=== PATIENT | male | born 1965 | race Caucasian/White ===

== ENCOUNTER → 2020-01-13 09:14 | Outpatient (CLI) | payer OTHER, SELFPAY ==
--- NOTE | 2020-01-13 | DI.US.S_ITS ---
PROCEDURE: US ABDOMEN LIMITED INDICATIONS: Right upper quadrant pain TECHNIQUE: Real-time scanning was performed of the abdominal and retroperitoneal organs, with image documentation. COMPARISON: None. FINDINGS: Liver: Liver is normal in size . Increased liver parenchymal echotexture is seen. No discrete hepatic lesion is identified. Gallbladder: There is no gallstone. No gallbladder wall thickening or pericholecystic fluid. No sonographic Kumar sign. Biliary ducts: Intrahepatic bile ducts are non-dilated. Extrahepatic bile duct caliber measures 2.4 mm. Normal is 6-7 mm or less in diameter, or 10 mm or less post-cholecystectomy. Pancreas: Visualized portions of the pancreas are sonographically normal. Spleen: Spleen is normal in size and homogeneous in echotexture. IMPRESSION: 1. Normal appearing gallbladder and gallbladder wall thickness. No sonographic evidence of acute cholecystitis. No biliary ductal dilatation. 2. Hepatic steatosis. Dictated by: Laron Ordoñez M.D. on 01/13/2020 at 12:15 Approved by: Laron Ordoñez M.D. on 01/13/2020 at 12:46
[2020-01-13 11:08] LABS: Add Manual Diff / Slide Review NO; Basophils Absolute Auto 0 /uL (0-100); Basophils Percent Auto 0.8 % (0-2); Eosinophils Absolute Auto 300 /uL (0-450); Hematocrit 46.1 % (41-53); Hemoglobin 15.6 g/dL (13.5-17.5); Lymphocytes Absolute Auto 1800 /uL (1100-4500); Lymphocytes Percent Auto 33.3 % (25-40); Mean Corpuscular HGB Conc 33.9 % (30-36); Mean Corpuscular Hemoglobin 33.1 PG (26-34); Mean Corpuscular Volume 97.5 fL (80-100); Monocytes Absolute Auto 500 /uL (0-900); Monocytes Percent Auto 9.3 % (3-14); Neutrophils Absolute Auto 2800 /uL (1500-7000); Neutrophils Percent Auto 51.6 % (50-75); Platelet Count 172 X10^3/uL (150-400); Red Blood Cell Count 4.72 X10^6/uL (4.5-5.9); Red Cell Distribution Width 12.6 % (11.6-14.8); White Blood Cell Count 5.4 X10^3/uL (4.5-11.0)
[2020-01-13 11:14] LABS: Hemoglobin A1C% w Est Avg Glu 5.5 % (4.0-6.0)
[2020-01-13 11:37] LABS: Alanine Aminotransferase 46 IU/L (<50); Albumin 4.9 g/dL (3.5-5.0); Albumin Globulin Ratio 1.2 (1.0-2.8); Alkaline Phosphatase 82 U/L (38-126); Amylase 58 U/L (30-110); Aspartate Aminotransferase 43 IU/L (17-59); BUN Creatinine Ratio 16.3 (6-22); Bilirubin Total 0.9 mg/dL (0.2-1.3); Blood Urea Nitrogen 14 mg/dL (9-20); Calcium 9.8 mg/dL (8.4-10.2); Carbon Dioxide 33 mmol/L (22-32); Chloride 102 mmol/L (98-107); Cholesterol 229 mg/dL (140-199); Estimated Glomerular Filt Rate > 60.0 mL/min (>60); Glucose 105 mg/dL (70-100); HDL Cholesterol 40 mg/dL (40-60); HEMOLYSIS < 15 (0-50); LDL Cholesterol Calculated 157 mg/dL (<100); Lipase 42 U/L (23-300); Potassium 4.3 mmol/L (3.4-5.1); Sodium 140 mmol/L (137-145); Total Protein 8.9 g/dL (6.3-8.2); Triglycerides 159 mg/dL (35-150)
== END ==
PROVIDERS: Family Provider Internal Medicine; PCP Family Medicine; Referring Provider Physician Assistant; Visit Provider Physician Assistant
DX: R10.11 Right upper quadrant pain (principal); E78.00 Pure hypercholesterolemia, unspecified; R73.9 Hyperglycemia, unspecified; K76.0 Fatty (change of) liver, not elsewhere classified
CPT/HCPCS: 36415; 76705; 80053; 80061; 82150; 83036; 83690; 85025

== ENCOUNTER 2020-01-25 10:28 | Emergency (ER) | payer OTHER, SELFPAY ==
[2020-01-25 10:35] VITALS: BP 176/93; PULSE 55; RESP 18; TEMP 36.2; O2SAT 99; BMI 30.2
[2020-01-25 11:06] LABS: INR 1.1 (0.9-1.3); Prothrombin Time 12.9 SECONDS (10.1-12.7)
[2020-01-25 11:09] LABS: PTT Partial Thromboplastin Tim 33 SECONDS (26.4-36.2)
[2020-01-25 11:10] LABS: Add Manual Diff / Slide Review NO; Basophils Absolute Auto 0 /uL (0-100); Basophils Percent Auto 0.7 % (0-2); Eosinophils Absolute Auto 300 /uL (0-450); Hematocrit 46.1 % (41-53); Hemoglobin 15.4 g/dL (13.5-17.5); Lymphocytes Absolute Auto 2200 /uL (1100-4500); Mean Corpuscular HGB Conc 33.5 % (30-36); Mean Corpuscular Hemoglobin 32.7 PG (26-34); Mean Corpuscular Volume 97.6 fL (80-100); Monocytes Absolute Auto 500 /uL (0-900); Monocytes Percent Auto 7.5 % (3-14); Neutrophils Absolute Auto 3300 /uL (1500-7000); Neutrophils Percent Auto 51.8 % (50-75); Platelet Count 180 X10^3/uL (150-400); Red Blood Cell Count 4.72 X10^6/uL (4.5-5.9); Red Cell Distribution Width 12.6 % (11.6-14.8); White Blood Cell Count 6.3 X10^3/uL (4.5-11.0)
[2020-01-25 11:14] LABS: Alanine Aminotransferase 45 IU/L (<50); Albumin 4.7 g/dL (3.5-5.0); Albumin Globulin Ratio 1.3 (1.0-2.8); Alkaline Phosphatase 74 U/L (38-126); Aspartate Aminotransferase 35 IU/L (17-59); Bilirubin Total 0.6 mg/dL (0.2-1.3); Blood Urea Nitrogen 13 mg/dL (9-20); Calcium 9.5 mg/dL (8.4-10.2); Carbon Dioxide 31 mmol/L (22-32); Chloride 102 mmol/L (98-107); Estimated Glomerular Filt Rate > 60.0 mL/min (>60); Globulin 3.5 g/dL (1.7-4.1); Glucose 138 mg/dL (70-100); HEMOLYSIS < 15 (0-50); Lipase 49 U/L (23-300); Potassium 4.9 mmol/L (3.4-5.1); Sodium 137 mmol/L (137-145); Total Protein 8.2 g/dL (6.3-8.2)
[2020-01-25 13:59] VITALS: O2SAT 100
[2020-01-25 14:00] VITALS: BP 156/102; O2SAT 100
[2020-01-25 14:26] VITALS: PULSE 55
--- NOTE | 2020-01-25 14:49 | DI.CT.S_ITS ---
PROCEDURE: CT ABDOMEN PELVIS W CON INDICATIONS: r flank epigastric pain TECHNIQUE: After the administration of intravenous contrast, 5 mm thick sections acquired from the diaphragm to the symphysis. 5 mm coronal and sagittal reformats were acquired. For radiation dose reduction, the following was used: automated exposure control, adjustment of mA and/or kV according to patient size. COMPARISON: [facility], , ABDOMEN LIMITED, 01/13/2020, 10:06. FINDINGS: Image quality: Excellent. ABDOMEN: Lung bases: Lung bases are clear. Heart size is normal. Small hiatal hernia. Solid organs: Mild hepatic steatosis. Liver is normal in size and enhancement. Gallbladder is normal. Biliary system is non dilated. Pancreas enhances normally. Spleen is normal in size and enhancement. No adrenal nodules. Kidneys demonstrate normal size and enhancement, without hydronephrosis. Peritoneum and bowel: Appendix is normal. Bowel loops demonstrate normal wall thickness and caliber. No free fluid or air. Nodes and vessels: No retroperitoneal or mesenteric adenopathy by size criteria. Aorta and inferior vena cava are normal in size. Miscellaneous: No ventral hernias. PELVIS: Genitourinary: Bladder wall thickness is normal. Miscellaneous: No inguinal hernias or adenopathy. Bones: No suspicious bony lesions. No vertebral body compression fractures. Mild degenerative disc disease and facet arthropathy in lumbar spine. IMPRESSION: 1. No acute abnormalities in abdomen or pelvis. A cause for right side abdominal pain is not identified. 2. Normal appendix. 3. No urinary stones or hydronephrosis. Dictated by: Bria Spaulding M.D. on 01/25/2020 at 15:06 Approved by: Bria Spaulding M.D. on 01/25/2020 at 15:13
[2020-01-25 16:42] VITALS: BP 143/87; PULSE 69; RESP 16; O2SAT 99
--- NOTE | 2020-01-25 17:08 | ED_ITS ---
HPI - Abdominal Pain <JOANA Vivar-BC - Last Filed: 01/25/20 18:37> General Chief Complaint: Abdominal Pain Stated Complaint: still have issue in right abd Time Seen by Provider: 01/25/20 14:27 Source: patient Mode of arrival: Ambulatory Limitations: no limitations History of Present Illness HPI narrative: The patient is a 54-year-old male nonsmoker with history of abdominal pain, hypertension who presents with a chief complaint continuing to have right-sided abdominal pain. He was seen and evaluated in this emergency department on the 2nd of this month. He states he had a negative ultrasound at that time and normal lab work. He states that since then, he has not followed up with primary care provider in person. They have arranged for him to have an upper and lower GI scope, and they have called him to schedule that but he has not returned our call. He denies any fevers nausea vomiting or diarrhea. He states the pain is in his right upper abdomen, goes back to his flank at times, any states that his skin is painful at times. He states that sometimes he can feel his food moving through his abdomen, which is painful. He states it is worse when he puts pressure on his flank around his abdomen. He denies any chest pain shortness of breath cough or congestion. Related Data Home Medications Medication Instructions Recorded Confirmed lisinopril 20 mg PO QDAY #0 03/23/16 metoprolol succinate [Toprol XL] 12.5 mg PO BID #0 03/23/16 Previous Rx's Medication Instructions Recorded atorvastatin [Lipitor] 10 mg PO HS #30 tab 03/24/16 pantoprazole 40 mg PO BID #30 tab 03/24/16 Allergies Allergy/AdvReac Type Severity Reaction Status Date / Time No Known Allergies Allergy Uncoded 05/22/17 12:55 Review of Systems <JOSE ANGEL Vivar - Last Filed: 01/25/20 18:37> Review of Systems Narrative: GENERAL: Denies chills, fatigue, malaise, fever, sweats. HEENT: Denies sinus pain, ear pain, sore throat, difficulty swallowing, dizziness. RESPIRATORY: Denies dyspnea, cough, wheezing, hemoptysis, sputum. CARDIOVASCULAR: Denies chest pain, palpitations, orthopnea, edema, GASTROINTESTINAL: See HPI : Denies dysuria, frequency, incontinence, hematuria, urinary retention. MUSCULOSKELETAL: denies weakness, joint pain, or bony pain SKIN: Denies rash, skin lesions, or other NEUROLOGIC: Denies weakness, headache, numbness, change in speech, confusion, seizures, incoordination. PSYCHIATRIC: No concerning psychosocial issues. 12 point review of systems is negative except for those stated above Patient History <Carolina JOANA Tai-BC - Last Filed: 01/25/20 18:37> Social History Smoking Status: Never smoker Smoking Status: Never smoker Substance Use Type: does not use Exam <Carolina TaiJOANA- - Last Filed: 01/25/20 18:37> Narrative Exam Narrative: GENERAL: This is a well-nourished, well-developed patient, in no acute distress HEAD: Atraumatic. Normocephalic. No temporal or scalp tenderness. EYES: Pupils equal round and reactive. Extraocular motions intact. No scleral icterus. No injection or drainage. ENT: Nose without bleeding, purulent drainage or septal hematoma. Wearing a mask Airway patent. NECK: Trachea midline. No JVD or lymphadenopathy. Supple, nontender, no meningeal signs. CARDIOVASCULAR: Regular rate and rhythm RESPIRATORY: Clear to auscultation. Breath sounds equal bilaterally. No wheezes, rales, or rhonchi. No cough. No increased respiratory effort. No accessory muscle use. GASTROINTESTINAL: Abdomen soft, active bowel sounds all 4 quadrants, , nondistended. No hepato-splenomegaly, or palpable masses. Diffuse pain to palpation. EXTREMITIES: No clubbing, cyanosis, or edema. No joint tenderness, effusion, or edema noted. BACK: Nontender without deformity or crepitance. Slight flank tenderness on right side Neuro: Stable gait, alert oriented x3, using all extremities equally SKIN: No rash or erythema on visible skin. No rash noted on right flank or right abdomen Initial Vital Signs Initial Vital Signs: Vital Signs Temperature 97.2 F L 01/25/20 10:35 Pulse Rate 55 L 01/25/20 10:35 Respiratory Rate 18 01/25/20 10:35 Blood Pressure 176/93 H 01/25/20 10:35 Pulse Oximetry 99 01/25/20 10:35 <Debbie Mulligan MD - Last Filed: 01/26/20 07:32> Initial Vital Signs Initial Vital Signs: Vital Signs Temperature 97.2 F L 01/25/20 10:35 Pulse Rate 55 L 01/25/20 10:35 Respiratory Rate 18 01/25/20 10:35 Blood Pressure 176/93 H 01/25/20 10:35 Pulse Oximetry 99 01/25/20 10:35 Scores <Carolina JOSE ANGEL Tai - Last Filed: 01/25/20 18:37> GCS Rosalino coma scale eye opening: Spontaneous Rosalino coma scale verbal response: Orientated Rosalino coma scale motor response: Obey commands Rosalino coma scale total score: 15 Course <JOSE ANGEL Vivar - Last Filed: 01/25/20 18:37> Orders Ordered: ED Orders 01/25/20 10:39 EKG-12 Lead Stat 01/25/20 10:52 Complete Blood Count AUTO DIFF Stat Comprehensive Metabolic Panel Stat Lipase Stat Partial Thromboplastin Time Stat Prothrombin Time INR Stat 01/25/20 14:49 CT abdomen pelvis w con Stat Vital Signs Vital signs: Vital Signs - 8 hr 01/25/20 13:59 01/25/20 14:00 01/25/20 14:26 Pulse Rate 55 L Respiratory Rate Blood Pressure 156/102 H Pulse Oximetry 100 100 01/25/20 16:42 Pulse Rate 69 Respiratory Rate 16 Blood Pressure 143/87 H Pulse Oximetry 99 <Debbie Mulligan MD - Last Filed: 01/26/20 07:32> Orders Ordered: ED Orders 01/25/20 10:39 EKG-12 Lead Stat 01/25/20 10:52 Complete Blood Count AUTO DIFF Stat Comprehensive Metabolic Panel Stat Lipase Stat Partial Thromboplastin Time Stat Prothrombin Time INR Stat 01/25/20 14:49 CT abdomen pelvis w con Stat Vital Signs Vital signs: Vital Signs - 8 hr 01/25/20 13:59 01/25/20 14:00 01/25/20 14:26 Pulse Rate 55 L Respiratory Rate Blood Pressure 156/102 H Pulse Oximetry 100 100 01/25/20 16:42 Pulse Rate 69 Respiratory Rate 16 Blood Pressure 143/87 H Pulse Oximetry 99 MDM - Abdominal Pain <Carolina JOSE ANGEL Tai - Last Filed: 01/25/20 18:37> Lab Data Result diagrams: 01/25/20 10:52 01/25/20 10:52 Labs: Lab Results 01/25/20 01/25/20 01/25/20 Range/Units 10:52 10:52 10:52 WBC 6.3 (4.5-11.0) X10^3/uL RBC 4.72 (4.5-5.9) X10^6/uL Hgb 15.4 (13.5-17.5) g/dL Hct 46.1 (41-53) % MCV 97.6 (80-100) fL MCH 32.7 (26-34) PG MCHC 33.5 (30-36) % RDW 12.6 (11.6-14.8) % Plt Count 180 (150-400) X10^3/uL Neut % (Auto) 51.8 (50-75) % Lymph % (Auto) 35.0 (25-40) % [place] % (Auto) 7.5 (3-14) % Eos % (Auto) 5.0 H (2-4) % Baso % (Auto) 0.7 (0-2) % Neut # (Auto) 3300 (8585-6573) /uL Lymph # (Auto) 2200 (7234-4796) /uL [place] # (Auto) 500 (0-900) /uL Eos # (Auto) 300 (0-450) /uL Baso # (Auto) 0 (0-100) /uL PT 12.9 H (10.1-12.7) SECONDS INR 1.1 (0.9-1.3) APTT 33 (26.4-36.2) SECONDS Sodium 137 (137-145) mmol/L Potassium 4.9 (3.4-5.1) mmol/L Chloride 102 (98-107) mmol/L Carbon Dioxide 31 (22-32) mmol/L BUN 13 (9-20) mg/dL Creatinine 0.81 (0.66-1.25) mg/dL Estimated GFR > 60.0 (>60) mL/min BUN/Creatinine Ratio 16.0 (6-22) Glucose 138 H (70-100) mg/dL Calcium 9.5 (8.4-10.2) mg/dL Total Bilirubin 0.6 (0.2-1.3) mg/dL AST 35 (17-59) IU/L ALT 45 (<50) IU/L Alkaline Phosphatase 74 (38-126) U/L Total Protein 8.2 (6.3-8.2) g/dL Albumin 4.7 (3.5-5.0) g/dL Globulin 3.5 (1.7-4.1) g/dL Albumin/Globulin Ratio 1.3 (1.0-2.8) Lipase 49 (23-300) U/L Point of care testing: Urine Dip Bedside Urine Glucose Negative Bedside Urine Bilirubin - Negative Bedside Urine Ketone - Negative Urine Specific [place] 1.020 Bedside Urine Occult Blood - Negative Bedside Urine pH 6.0 Bedside Urine Protein - Negative Bedside Urine Urobilinogen - Negative Bedside Urine Nitrite - Negative Bedside Urine Leukocytes - Negative Esterase ECG Data Attestation: I personally reviewed and interpreted this ECG as follows: Interpretation: Sinus bradycardia. Ventricular rate 50. P.r. interval 142. QRS 102. Viewed by Dr Mulligan MDM Narrative Medical decision making narrative: The patient is a 54-year-old male who presents with a chief complaint of persistent abdominal pain and painful food moving through my belly.He had a negative workup here about 2 weeks ago. Overall as lab work results well, no leukocytosis. However given his pain on exam, complains of flank pain, CT was obtained and had no acute findings. I encouraged him to follow up with primary care provider. He declines any medications for nausea pain etcetera. I encouraged him to schedule the scope such as primary care providers attempting to do. Encouraged follow-up with primary care provider in the next few days, may benefit from GI referral. Discussed at length coming back to the ER for abdominal pain with fever, inability keep down fluids etcetera. Patient has no questions or concerns upon discharge and states understanding return precautions as well as follow-up care. <Debbie Mulligan MD - Last Filed: 01/26/20 07:32> Lab Data Labs: Lab Results 01/25/20 01/25/20 01/25/20 Range/Units 10:52 10:52 10:52 WBC 6.3 (4.5-11.0) X10^3/uL RBC 4.72 (4.5-5.9) X10^6/uL Hgb 15.4 (13.5-17.5) g/dL Hct 46.1 (41-53) % MCV 97.6 (80-100) fL MCH 32.7 (26-34) PG MCHC 33.5 (30-36) % RDW 12.6 (11.6-14.8) % Plt Count 180 (150-400) X10^3/uL Neut % (Auto) 51.8 (50-75) % Lymph % (Auto) 35.0 (25-40) % [place] % (Auto) 7.5 (3-14) % Eos % (Auto) 5.0 H (2-4) % Baso % (Auto) 0.7 (0-2) % Neut # (Auto) 3300 (7721-7167) /uL Lymph # (Auto) 2200 (0186-4178) /uL [place] # (Auto) 500 (0-900) /uL Eos # (Auto) 300 (0-450) /uL Baso # (Auto) 0 (0-100) /uL PT 12.9 H (10.1-12.7) SECONDS INR 1.1 (0.9-1.3) APTT 33 (26.4-36.2) SECONDS Sodium 137 (137-145) mmol/L Potassium 4.9 (3.4-5.1) mmol/L Chloride 102 (98-107) mmol/L Carbon Dioxide 31 (22-32) mmol/L BUN 13 (9-20) mg/dL Creatinine 0.81 (0.66-1.25) mg/dL Estimated GFR > 60.0 (>60) mL/min BUN/Creatinine Ratio 16.0 (6-22) Glucose 138 H (70-100) mg/dL Calcium 9.5 (8.4-10.2) mg/dL Total Bilirubin 0.6 (0.2-1.3) mg/dL AST 35 (17-59) IU/L ALT 45 (<50) IU/L Alkaline Phosphatase 74 (38-126) U/L Total Protein 8.2 (6.3-8.2) g/dL Albumin 4.7 (3.5-5.0) g/dL Globulin 3.5 (1.7-4.1) g/dL Albumin/Globulin Ratio 1.3 (1.0-2.8) Lipase 49 (23-300) U/L Point of care testing: Urine Dip Bedside Urine Glucose Negative Bedside Urine Bilirubin - Negative Bedside Urine Ketone - Negative Urine Specific [place] 1.020 Bedside Urine Occult Blood - Negative Bedside Urine pH 6.0 Bedside Urine Protein - Negative Bedside Urine Urobilinogen - Negative Bedside Urine Nitrite - Negative Bedside Urine Leukocytes - Negative Esterase Discharge Plan Departure Patient Disposition: Home Clinical Impression: Abdominal pain Qualifiers: Abdominal location: generalized Qualified Code(s): R10.84 - Generalized abdominal pain Instructions: DI for Abdominal Pain-Adult Activity Restrictions/Additional Instructions: Thank you for trusting us with your care today As discussed, your lab work resulted well, and her CT scan came back well with no acute findings. Please follow-up with primary care provider in the next few days. As discussed, please come back to ER for acute concerns such as abdominal pain with fever, inability keep down fluids, concern of heart attack or stroke. Prescriptions: No Action lisinopril 20 mg tablet 20 mg PO QDAY Qty: 0 RF: 0 metoprolol succinate [Toprol XL] 100 mg tablet extended release 24 hr 12.5 mg PO BID Qty: 0 RF: 0 atorvastatin [Lipitor] 20 MG tablet 10 mg PO HS Qty: 30 RF: 0 pantoprazole 40 MG tablet,delayed release (DR/EC) 40 mg PO BID Qty: 30 RF: 0 Referrals: Agustin De MD [Primary Care Provider] - <Debbie Mulligan MD - Last Filed: 01/26/20 07:32> Cosign ED Attending Cosignature Attestation: I was immediately available in the department for consultation throughout this patient's visit. I agree with documentation as above. Debbie Mulligan MD
== END 2020-01-25 16:42 | disposition home or self-care (01) ==
PROVIDERS: Emergency Medicine; Emergency Provider Nurse Practitioner Family; Family Provider Internal Medicine; PCP Family Medicine
DX: R10.84 Generalized abdominal pain (principal); I10 Essential (primary) hypertension; R00.1 Bradycardia, unspecified
CPT/HCPCS: 36415; 74177; 80053; 81003; 83690; 85025; 85610; 85730; 93005; 93010; 99284; Q9967

== ENCOUNTER 2021-01-26 08:36 | Emergency (ER) | payer OTHER, SELFPAY ==
[2021-01-26] VITALS (15 sets, daily range): BP systolic 107–149; BP diastolic 64–89; PULSE 64–76; RESP 17–18; TEMP 36.7; O2SAT 95–100; BMI 32.1
--- NOTE | 2021-01-26 09:01 | ED.GENADULT ---
HPI - General Adult General Chief complaint: Abdominal Pain Stated complaint: RT side abd/rib pain Time Seen by Provider: 01/26/21 09:00 Source: patient Mode of arrival: Ambulatory History of Present Illness HPI narrative: 55-year-old gentleman with history of hypertension, hyperlipidemia and gastric erosions presents with right sided posterior lower lung/right upper flank pain getting worse over the last 24 hours. Worse when he takes a deep breath describes as a sharp stabbing pain he describes it is associated with chronic low-grade nausea but no overt vomiting, low-grade abdominal pain. He complains of recent abdominal distension and bloating without weight loss. Notes that his ?stomach issues? have been worse over the last few weeks despite his 40 mg twice a day of pantoprazole. He describes no black or bloody stools, no lower abdominal pain no left-sided chest pain, palpitations, dyspnea or exertional dyspnea. No headaches, skin changes or other neurologic findings Related Data Home Medications Medication Instructions Recorded Confirmed lisinopril 20 mg tablet 20 mg PO QDAY #0 03/23/16 Previous Rx's Medication Instructions Recorded atorvastatin 20 mg tablet (Lipitor) 10 mg PO HS #30 tab 03/24/16 pantoprazole 40 mg tablet,delayed 40 mg PO BID #30 tab 03/24/16 release metoprolol tartrate 25 mg tablet 12.5 mg PO BID #90 tab 01/09/21 Allergies Allergy/AdvReac Type Severity Reaction Status Date / Time No Known Allergies Allergy Uncoded 05/22/17 12:55 Review of Systems Review of Systems Narrative: Remainder of complete review of systems is otherwise unremarkable except for that included in the HPI. Patient History Medical History (Updated 01/26/21 @ 16:32 by Debbie Mulligan MD) Chronic gastric erosion Hyperlipidemia Hypertension Social History Smoking Status: Never smoker Smoking Status: Never smoker Substance Use Type: does not use Exam Narrative Exam Narrative: General: Healthy appearing, in no acute distress. Able to give a complete and coherent history. Well-nourished well-developed HEENT: Moist mucous membranes, normal sclera with reactive pupils, Neck: No JVD, supple Respiratory: Lungs are clear to auscultation, no wheezing no rales no rhonchi. Full and symmetrical air movement Cardiac: Regular rate and rhythm no murmurs no bruits Chest: No specific rib tenderness he area of tenderness involves the lower portion of the right lung over the liver extending down to the flank that is not made overtly worse with any palpation. There are no skin changes over this area Abdomen: Soft, nontender, good bowel tones, no flank pain Skin: Warm and dry, no rashes Neurologic: Grossly neurologically intact with no obvious asymmetries or abnormalities Extremities: No trauma, well perfused Psych: Cooperative, appropriate insight and affect Initial Vital Signs Initial Vital Signs: Vital Signs Pulse Rate 74 01/26/21 08:44 Pulse Oximetry 100 01/26/21 08:44 Course Orders Ordered: ED Orders 01/26/21 09:14 XR chest 1V Stat EKG-12 Lead Stat 01/26/21 09:17 Complete Blood Count AUTO DIFF Stat Comprehensive Metabolic Panel Stat Lipase Stat Magnesium Stat Troponin I Stat 01/26/21 11:32 US abdomen limited Stat 01/26/21 12:43 Urinalysis and Microscopic Stat 01/26/21 14:53 CT abdomen pelvis w con Stat Hydromorphone HCl (Hydromorphone 0.5 Mg Inj) 0.5 mg IV Q15MIN PRN PRN Reason: Pain, Last Admin: 01/26/21 09:38 Dose: 0.5 mg Documented by: BUDDY Discontinued Medications Sodium Chloride (Normal Saline 0.9%) 1,000 mls @ 1,000 mls/hr IV BOLUS ONE Stop: 01/26/21 10:12 Last Infusion: 01/26/21 11:06 Dose: 0 mls/hr Documented by: Admin: 01/26/21 09:38 Dose: 1,000 mls/hr Documented by: BUDDY Ketorolac Tromethamine (Ketorolac 30 Mg/Ml Vial) 15 mg IV NOW ONE Stop: 01/26/21 14:54 Last Admin: 01/26/21 15:47 Dose: 15 mg Documented by: BUDDY Ondansetron HCl (Ondansetron 4 Mg/2 Ml Inj) 4 mg IV NOW ONE Stop: 01/26/21 09:14 Last Admin: 01/26/21 09:38 Dose: 4 mg Documented by: BUDDY Vital Signs Vital signs: Vital Signs - 8 hr 01/26/21 08:44 01/26/21 08:45 01/26/21 08:46 Temperature Pulse Rate 74 75 73 Respiratory Rate Blood Pressure 148/86 H 149/89 H Pulse Oximetry 100 99 99 01/26/21 08:49 01/26/21 09:00 01/26/21 09:30 Temperature 98.1 F Pulse Rate 74 70 70 Respiratory Rate 18 Blood Pressure 148/86 H 119/76 121/76 Pulse Oximetry 99 97 97 01/26/21 10:00 01/26/21 10:30 01/26/21 11:00 Temperature Pulse Rate 65 64 67 Respiratory Rate Blood Pressure 114/69 112/68 107/64 Pulse Oximetry 95 97 97 01/26/21 11:07 01/26/21 11:30 01/26/21 12:00 Temperature Pulse Rate 69 66 65 Respiratory Rate Blood Pressure 114/66 112/66 114/74 Pulse Oximetry 97 97 99 01/26/21 12:30 01/26/21 12:31 Temperature Pulse Rate 69 68 Respiratory Rate Blood Pressure 138/74 Pulse Oximetry 98 99 Medical Decision Making Lab Data Result diagrams: 01/26/21 09:17 01/26/21 09:17 Labs: Lab Results 01/26/21 01/26/21 01/26/21 Range/Units 09:17 09:17 12:43 WBC 9.8 (4.5-11.0) X10^3/uL RBC 4.20 L (4.5-5.9) X10^6/uL Hgb 14.3 (13.5-17.5) g/dL Hct 39.9 L (41-53) % MCV 95.0 (80-100) fL MCH 34.0 (26-34) PG MCHC 35.8 (30-36) % RDW 12.7 (11.6-14.8) % Plt Count 148 L (150-400) X10^3/uL Neut % (Auto) 72.2 (50-75) % Lymph % (Auto) 14.6 L (25-40) % Warren % (Auto) 12.1 (3-14) % Eos % (Auto) 0.8 L (2-4) % Baso % (Auto) 0.3 (0-2) % Neut # (Auto) 7100 H (2375-6735) /uL Lymph # (Auto) 1400 (4623-2095) /uL Warren # (Auto) 1200 H (0-900) /uL Eos # (Auto) 100 (0-450) /uL Baso # (Auto) 0 (0-100) /uL Sodium 137 (137-145) mmol/L Potassium 4.0 (3.4-5.1) mmol/L Chloride 103 (98-107) mmol/L Carbon Dioxide 27 (22-32) mmol/L BUN 13 (9-20) mg/dL Creatinine 0.91 (0.66-1.25) mg/dL Estimated GFR > 60.0 (>60) mL/min BUN/Creatinine Ratio 14.3 (6-22) Glucose 114 H (70-100) mg/dL Calcium 9.3 (8.4-10.2) mg/dL Magnesium 2.1 (1.6-2.3) mg/dL Total Bilirubin 2.0 H (0.2-1.3) mg/dL AST 35 (17-59) IU/L ALT 49 (<50) IU/L Alkaline Phosphatase 76 (38-126) U/L Troponin I < 0.012 (0.01-0.034) ng/mL Total Protein 8.4 H (6.3-8.2) g/dL Albumin 4.7 (3.5-5.0) g/dL Globulin 3.7 (1.7-4.1) g/dL Albumin/Globulin Ratio 1.3 (1.0-2.8) Lipase 27 (23-300) U/L Urine Color Yellow Urine Appearance Clear Urine pH 5.5 (4.5-8.0) Ur Specific [place] 1.020 (1.000-1.035) Urine Protein Negative (Negative) Urine Glucose (UA) Negative (Negative) g/dL Urine Ketones Trace H (NEGATIVE) Urine Occult Blood 1+ H (Negative) Urine Nitrate Negative (Negative) Urine Bilirubin Negative (NEGATIVE) Urine Urobilinogen 2.0 H (0.2) E.U./dL Ur Leukocyte Esterase Negative (NEGATIVE) Urine RBC 0-1/hpf (0-5/HPF) Urine WBC 0-1/hpf (0-5/HPF) Ur Squamous Epith Cells 0-1 /hpf (0-5/HPF) Urine Bacteria None seen (None) Ur Culture Indicated? Cult not indicated Imaging Data Chest x-ray: Radiologist's Impression: FINDINGS:? ? Surgical changes and devices:? None.? ? Lungs and pleura:? Lungs are clear.? No pleural effusions or pneumothorax.? ? Mediastinum:? Mediastinal contours appear normal.? Heart size is normal.? ? Bones and chest wall:? No suspicious bony lesions.? Overlying soft tissues appear unremarkable.? ? IMPRESSION:? No acute cardiopulmonary pathology. ? ? Dictated by: Laron Ordoñez M.D. on 01/26/2021 at 9:44? ?? CT scan - abdomen/pelvis: Radiologist's Impression: FINDINGS:? Image quality:? Excellent.? ? Lung bases:? Trace right pleural effusion.? Right lung base atelectasis. ? Heart:? No significant findings. ? ? ABDOMEN: Liver:? Hepatic steatosis.? ? Gallbladder:? Unremarkable.? ? Biliary ducts:? Unremarkable.? ? Pancreas:? No peripancreatic fluid collection.? Pancreas enhances uniformly.? ? Spleen:? Unremarkable.? ? Adrenal Glands:? Unremarkable.? ? Kidneys and Ureters:? No hydronephrosis. ? Stomach and Bowel:? Stomach, small bowel loops, and colon are unremarkable.? Normal appendix. Peritoneum:? No abnormal intraperitoneal fluid.? No free air.? ? Ventral Wall: ? No hernia.? Abdominal Nodes:? No retroperitoneal or mesenteric adenopathy by size criteria.? Vessels:? Aorta and inferior vena cava are normal in size.? ? PELVIS: Pelvic Organs:? Unremarkable.? ? Bladder:? Unremarkable.? ? Pelvic Nodes: No enlarged lymph nodes.? Miscellaneous: No inguinal hernias are seen. ? ? ? Bones:? No compression fracture.? No suspicious lesions.? Small vertebral body osteophytes. ? ? IMPRESSION:? 1. Trace right pleural effusion.? Right basilar atelectasis. ? 2. Gallbladder appears unremarkable. ? 3. Normal appendix.? No hydronephrosis.? No free fluid. ? ? Dictated by: Jhonny Zhang M.D. on 01/26/2021 at 15:46? ?? ECG Data Interpretation: Normal sinus rhythm at a rate of 68 Incomplete right bundle-branch Normal axis No acute ischemic changes MDM Narrative Medical decision making narrative: 55-year-old gentleman with acute onset right sided abdominal pain unclear if it is right lower rib right upper quadrant right flank. Bilirubin is elevated without elevated LFTs, white count no blood in his urine to suggest kidney stone and chest x-ray is unremarkable. Will obtain US of his gallbladder. 250pm ultrasound is unremarkable. Findings reviewed with patient. At this point there is no evidence of infection, kidney stone, obvious pneumonia, pneumothorax, or need for hospitalization. Given the fact that he [place] on [address] [facility] and the pain is still severe will go ahead and do a CT scan of his abdomen today rather than observing for the next 24 hours. Will add Toradol for pain control and re-evaluate after the CT scan CT scan is equally unrevealing. No specific abnormalities identified to explain his pain. No pneumonia, pneumothorax, mass or abnormality in the right lung base, significantly new liver inflammation or tumors, no acute cholecystitis or cholelithiasis, it is no pancreatic masses or abnormalities no kidney stone no liver abnormalities and no renal abnormalities. At this point the most likely explanation is in fact musculoskeletal. Patient is quite frustrated that he will not be able to return to work after having things ?fixed? this afternoon. Offered brief course of narcotics which he politely declines. At this point he is safe for home discharge Discharge Plan Departure Patient Disposition: Home Clinical Impression: Rib pain on right side Instructions: DI for Musculoskeletal Pain Activity Restrictions/Additional Instructions: Thank you for coming in today It is frustrating when I can not figure out exactly what is causing your pain. Fortunately there is no evidence of of lung tumor, mass, infection or other abnormality. There are no specific liver abnormalities or gallbladder abnormalities. Your kidney looks normal with no sign of kidney stone. The remainder of your abdominal CT does not show any bowel abnormalities to explain this pain that your having. At this time I can confidently say that I am not finding anything that is life-threatening. Sometimes it takes a bit of time to figure out a final diagnosis and sometimes musculoskeletal pain really is this horrible and does improve with a bit more time. Using 400 mg of ibuprofen (2 [id number] pills) and 1 Tylenol every 6 hours can be very helpful in controlling pain. If your finding new symptoms or having other concerns, please feel free to return to the emergency department Prescriptions: No Action lisinopril 20 mg tablet 20 mg PO QDAY Qty: 0 0RF atorvastatin [Lipitor] 20 MG tablet 10 mg PO HS Qty: 30 0RF pantoprazole 40 MG tablet,delayed release (DR/EC) 40 mg PO BID Qty: 30 0RF metoprolol tartrate 25 mg tablet 12.5 mg PO BID Qty: 90 3RF Referrals: Agustin De MD [Primary Care Provider] -
--- NOTE | 2021-01-26 09:14 | DI.RAD.S_ITS ---
PROCEDURE: XR CHEST 1V INDICATIONS: right lower lobe/chest pain TECHNIQUE: One view of the chest was acquired. COMPARISON: [facility], , CHEST 1 VIEW, 03/23/2016, 10:58. FINDINGS: Surgical changes and devices: None. Lungs and pleura: Lungs are clear. No pleural effusions or pneumothorax. Mediastinum: Mediastinal contours appear normal. Heart size is normal. Bones and chest wall: No suspicious bony lesions. Overlying soft tissues appear unremarkable. IMPRESSION: No acute cardiopulmonary pathology. Dictated by: Laron Ordoñez M.D. on 01/26/2021 at 9:44 Approved by: Laron Ordoñez M.D. on 01/26/2021 at 9:44
[2021-01-26 09:36] LABS: Add Manual Diff / Slide Review NO; Basophils Absolute Auto 0 /uL (0-100); Basophils Percent Auto 0.3 % (0-2); Eosinophils Absolute Auto 100 /uL (0-450); Eosinophils Percent Auto 0.8 % (2-4); Hematocrit 39.9 % (41-53); Hemoglobin 14.3 g/dL (13.5-17.5); Lymphocytes Absolute Auto 1400 /uL (1100-4500); Lymphocytes Percent Auto 14.6 % (25-40); Mean Corpuscular HGB Conc 35.8 % (30-36); Monocytes Absolute Auto 1200 /uL (0-900); Monocytes Percent Auto 12.1 % (3-14); Neutrophils Absolute Auto 7100 /uL (1500-7000); Neutrophils Percent Auto 72.2 % (50-75); Platelet Count 148 X10^3/uL (150-400); Red Cell Distribution Width 12.7 % (11.6-14.8); White Blood Cell Count 9.8 X10^3/uL (4.5-11.0)
[2021-01-26] MEDS: ONDANSETRON 4 MG/2 ML INJ IV (09:38)
[2021-01-26] MEDS: SODIUM CHLORIDE 0.9% 1,000 ML 1000 ML IV (09:38)
[2021-01-26] MEDS: HYDROMORPHONE 0.5 MG INJ IV (09:38)
[2021-01-26 09:48] LABS: Alanine Aminotransferase 49 IU/L (<50); Albumin 4.7 g/dL (3.5-5.0); Albumin Globulin Ratio 1.3 (1.0-2.8); Alkaline Phosphatase 76 U/L (38-126); Aspartate Aminotransferase 35 IU/L (17-59); BUN Creatinine Ratio 14.3 (6-22); Blood Urea Nitrogen 13 mg/dL (9-20); Calcium 9.3 mg/dL (8.4-10.2); Carbon Dioxide 27 mmol/L (22-32); Chloride 103 mmol/L (98-107); Estimated Glomerular Filt Rate > 60.0 mL/min (>60); Globulin 3.7 g/dL (1.7-4.1); Glucose 114 mg/dL (70-100); HEMOLYSIS < 15 (0-50); Lipase 27 U/L (23-300); Magnesium 2.1 mg/dL (1.6-2.3); Sodium 137 mmol/L (137-145); Total Protein 8.4 g/dL (6.3-8.2)
[2021-01-26 10:00] LABS: Troponin I < 0.012 ng/mL (0.01-0.034)
--- NOTE | 2021-01-26 11:32 | DI.US.S_ITS ---
PROCEDURE: US ABDOMEN LIMITED INDICATIONS: RUQ PAIN; ELEVATED BILIRUBIN TECHNIQUE: Real-time focused scanning was performed of the abdomen, with image documentation. COMPARISON: [facility], CT, CT ABDOMEN PELVIS W CON, 01/25/2020, 14:37. [facility], US, US ABDOMEN LIMITED, 01/13/2020, 10:06. FINDINGS: Liver is mildly echogenic consistent with mild hepatic steatosis. No focal liver masses. No dilated ducts. Common bile duct measures 4.9 mm. No biliary ductal dilatation. Gallbladder is unremarkable. No stones or gallbladder wall thickening or pain on exam. Visualized portions of the pancreas are unremarkable. IMPRESSION: 1. Mild hepatic steatosis. 2. No evidence of biliary obstruction. 3. Unremarkable gallbladder. Dictated by: Rolando Curry M.D. on 01/26/2021 at 12:37 Approved by: Rolando Curry M.D. on 01/26/2021 at 12:38
[2021-01-26 13:21] LABS: Appearance Urine UA CLEAR; Bilirubin Urine UA NEGATIVE (NEGATIVE); Color Urine UA YELLOW; Glucose Urine UA NEGATIVE (Negative); Ketones Urine UA TRACE (NEGATIVE); Leukocyte Esterase Urine UA NEGATIVE (NEGATIVE); Nitrite Urine UA NEGATIVE (Negative); Occult Blood Urine UA 1+ (Negative); Protein Urine UA NEGATIVE (Negative); pH Urine UA 5.5 (4.5-8.0)
[2021-01-26 13:34] LABS: Bacteria Urine None Seen; Culture Indicated Urine Cult Not Indicated; RBC Urine 0-1/HPF (0-5/HPF); Squamous Epithelial Cell Urine 0-1 /HPF (0-5/HPF); WBC Urine 0-1/HPF (0-5/HPF)
--- NOTE | 2021-01-26 14:53 | DI.CT.S_ITS ---
PROCEDURE: CT ABDOMEN PELVIS W CON INDICATIONS: R upper quadrant/lower lung field pain TECHNIQUE: After the administration of IV contrast, axial sections were acquired from the lung bases to the pubic symphysis. Coronal and sagittal reformats were performed. For radiation dose reduction, the following was used: automated exposure control, adjustment of mA and/or kV according to patient size. COMPARISON: [facility], CT, CT ABDOMEN PELVIS W CON, 01/25/2020, 14:37. FINDINGS: Image quality: Excellent. Lung bases: Trace right pleural effusion. Right lung base atelectasis. Heart: No significant findings. ABDOMEN: Liver: Hepatic steatosis. Gallbladder: Unremarkable. Biliary ducts: Unremarkable. Pancreas: No peripancreatic fluid collection. Pancreas enhances uniformly. Spleen: Unremarkable. Adrenal Glands: Unremarkable. Kidneys and Ureters: No hydronephrosis. Stomach and Bowel: Stomach, small bowel loops, and colon are unremarkable. Normal appendix. Peritoneum: No abnormal intraperitoneal fluid. No free air. Ventral Wall: No hernia. Abdominal Nodes: No retroperitoneal or mesenteric adenopathy by size criteria. Vessels: Aorta and inferior vena cava are normal in size. PELVIS: Pelvic Organs: Unremarkable. Bladder: Unremarkable. Pelvic Nodes: No enlarged lymph nodes. Miscellaneous: No inguinal hernias are seen. Bones: No compression fracture. No suspicious lesions. Small vertebral body osteophytes. IMPRESSION: 1. Trace right pleural effusion. Right basilar atelectasis. 2. Gallbladder appears unremarkable. 3. Normal appendix. No hydronephrosis. No free fluid. Dictated by: Jhonny Zhang M.D. on 01/26/2021 at 15:46 Approved by: Jhonny Zhang M.D. on 01/26/2021 at 15:50
[2021-01-26] MEDS: KETOROLAC 30 MG/ML VIAL 15 MG IV (15:47)
== END 2021-01-26 16:54 | disposition home or self-care (01) ==
PROVIDERS: Emergency Provider Emergency Medicine; Family Provider Internal Medicine; PCP Family Medicine
DX: R07.81 Pleurodynia (principal)
CPT/HCPCS: 36415; 71045; 74177; 76705; 80053; 81001; 83690; 83735; 84484; 85025; 93005; 93010; 96361; 96374; 96375; 99284; J1170; J1885; J2405; Q9967

== ENCOUNTER → 2021-03-23 08:32 | Outpatient (CLI) | payer OTHER, SELFPAY ==
[2021-03-23 19:06] LABS: Alanine Aminotransferase 62 IU/L (<50); Albumin 4.4 g/dL (3.5-5.0); Albumin Globulin Ratio 1.3 (1.0-2.8); Alkaline Phosphatase 86 U/L (38-126); Aspartate Aminotransferase 51 IU/L (17-59); BUN Creatinine Ratio 16.7 (6-22); Blood Urea Nitrogen 16 mg/dL (9-20); Calcium 9.7 mg/dL (8.4-10.2); Carbon Dioxide 33 mmol/L (22-32); Chloride 101 mmol/L (98-107); Cholesterol 220 mg/dL (140-199); Estimated Glomerular Filt Rate > 60.0 mL/min (>60); Globulin 3.5 g/dL (1.7-4.1); Glucose 115 mg/dL (70-100); HDL Cholesterol 38 mg/dL (40-60); HEMOLYSIS < 15 (0-50); LDL Cholesterol Calculated 151 mg/dL (<100); Potassium 4.5 mmol/L (3.4-5.1); Sodium 137 mmol/L (137-145); Total Protein 7.9 g/dL (6.3-8.2); Triglycerides 157 mg/dL (35-150); Uric Acid 7.9 mg/dL (3.5-8.5)
[2021-03-23 19:09] LABS: Add Manual Diff / Slide Review NO; Basophils Absolute Auto 0 /uL (0-100); Basophils Percent Auto 0.7 % (0-2); Eosinophils Absolute Auto 400 /uL (0-450); Eosinophils Percent Auto 7.1 % (2-4); Hematocrit 43.2 % (41-53); Hemoglobin 14.8 g/dL (13.5-17.5); Lymphocytes Absolute Auto 1700 /uL (1100-4500); Lymphocytes Percent Auto 33.6 % (25-40); Mean Corpuscular HGB Conc 34.3 % (30-36); Mean Corpuscular Hemoglobin 32.7 PG (26-34); Mean Corpuscular Volume 95.4 fL (80-100); Monocytes Absolute Auto 500 /uL (0-900); Monocytes Percent Auto 9.2 % (3-14); Neutrophils Absolute Auto 2500 /uL (1500-7000); Neutrophils Percent Auto 49.4 % (50-75); Platelet Count 180 X10^3/uL (150-400); Red Blood Cell Count 4.52 X10^6/uL (4.5-5.9); Red Cell Distribution Width 12.9 % (11.6-14.8); White Blood Cell Count 5.1 X10^3/uL (4.5-11.0)
[2021-03-23 19:12] LABS: Rheumatoid Factor 19.9 IU/mL (<12.0)
[2021-03-23 19:31] LABS: Erythrocyte Sedimentation Rate 5 MM/HR (0-15)
[2021-03-28 17:43] LABS: ANA Screen, IFA Positive (.)
== END ==
PROVIDERS: Family Provider Internal Medicine; PCP Family Medicine; Visit Provider Physician Assistant
DX: E78.5 Hyperlipidemia, unspecified (principal); I10 Essential (primary) hypertension; K25.7 Chronic gastric ulcer without hemorrhage or perforation; M19.90 Unspecified osteoarthritis, unspecified site; M79.10 Myalgia, unspecified site
CPT/HCPCS: 80053; 80061; 84550; 85025; 85651; 86038; 86430

== ENCOUNTER 2022-03-22 08:54 | Emergency (ER) | payer OTHER, SELFPAY ==
[2022-03-22 09:03] VITALS: BP 176/113; PULSE 67; RESP 11; TEMP 36.2; O2SAT 99; BMI 32.3
--- NOTE | 2022-03-22 09:06 | DI.RAD.S_ITS ---
PROCEDURE: XR SHOULDER LT MIN 2V INDICATIONS: left shoulder pain / no overt trauma TECHNIQUE: 3 views of the shoulder were acquired. COMPARISON: None. FINDINGS: Bones: No fractures or dislocations. No suspicious bony lesions. Visualized ribs appear intact. Periarticular osteophyte formation at the acromioclavicular and glenohumeral joints. Soft tissues: Calcification projects over the rotator cuff. IMPRESSION: 1. Osteoarthritis. 2. Calcific tendinitis of the rotator cuff. Dictated by: Doug Pelayo M.D. on 03/22/2022 at 9:17 Approved by: Doug Pelayo M.D. on 03/22/2022 at 9:17
--- NOTE | 2022-03-22 09:27 | ED_ITS ---
HPI - Extremity Injury (Upper) General Chief Complaint: Extremity Injury, Upper Stated Complaint: tore LT shoulder up yesterday Time Seen by Provider: 03/22/22 09:10 Source: patient Mode of arrival: Ambulatory History of Present Illness HPI narrative: Patient brought here by spouse. Complains of left shoulder pain. Patient is right-handed. No prior history of injury or surgery to the left shoulder. Patient states 2 nights ago he was pulling up his bed sheets and felt pain in the left shoulder, there is a course of the last couple of days has worsened. Yesterday at work his pain got very severe. Patient lifts heavy machinery, he works for a [employer] company. Very painful with any movement of the left shoulder. No numbness tingling or weakness. No deformity. His shirt was removed Related Data Previous Rx's Medication Instructions Recorded pantoprazole 40 mg tablet,delayed 40 mg PO BID #30 tabs 03/24/16 release metoprolol tartrate 25 mg tablet 12.5 mg PO BID #90 tabs 01/09/21 lisinopril 20 mg tablet 20 mg PO QDAY #90 tabs 04/16/21 colchicine 0.6 mg capsule See Rx Instructions .Route 09/12/21 .COMPLEX #15 caps triamcinolone acetonide 0.1 % 1 applic topical .COMPLEX 14 days 02/14/22 topical ointment #30 grams atorvastatin 20 mg tablet See Rx Instructions .Route 02/27/22 .COMPLEX #90 tabs hydrocodone 5 mg-acetaminophen 325 1 tab PO Q6H PRN pain #15 tabs 03/22/22 mg tablet ondansetron 4 mg disintegrating 4 mg PO Q8H PRN nausea and 03/22/22 tablet vomiting #10 tabs Allergies Allergy/AdvReac Type Severity Reaction Status Date / Time No Known Drug Allergies Allergy Verified 02/14/22 09:21 Review of Systems Review of Systems Narrative: GENERAL: negative chills, fatigue, malaise, fever, sweats. HEENT: negative sinus pain, ear pain, sore throat RESPIRATORY: negative dyspnea, cough CARDIOVASCULAR: negative chest pain, palpitations GASTROINTESTINAL: negative nausea, vomiting, abdominal pain : negative dysuria, frequency, hematuria MUSCULOSKELETAL: Positive muscle or bony pain SKIN: negative rash, skin lesions NEUROLOGIC: negative weakness, numbness ROS Unobtainable: All systems reviewed & are unremarkable except as noted in HPI and below Patient History Medical History Chicken pox (~2001) Chronic gastric erosion Encounter for screening colonoscopy Gout Hyperlipidemia Hypertension Mumps (~1969) Surgical History Anesthesia History of shoulder surgery (~2009) Family History Father Hypertension Hyperlipidemia Mother Cancer Grandfather Stroke Social History Smoking Status: Former smoker Smoking Status: Former smoker alcohol intake frequency: 0-2 drinks per day Substance Use Type: does not use Exam Narrative Exam Narrative: GENERAL: in no distress, not toxic not dyspneic HEAD: Normocephalic. EYES: Pupils equal round ENT: Mucous membranes moist. NECK: Trachea midline. No midline cervical tenderness or step-off Tenderness to left trapezius muscle EXTREMITIES: No gross deformities. Examination left shoulder, no gross deformity or drop off. Light touch intact deltoid and fingertips with strong golf range attendant and radial pulse. Nontender wrist and elbow. Patient has pain with external and internal rotation of the shoulder. Also pain with forward flexion. Unable to bring his hand behind his back. Is able to bring hand above his head. BACK: No flank tenderness. NEURO: AOx4. SKIN: Warm and dry PSYCH: Not anxious, is cooperative Initial Vital Signs Initial Vital Signs: Vital Signs Temperature 97.1 F L 03/22/22 09:03 Pulse Rate 67 03/22/22 09:03 Respiratory Rate 11 L 03/22/22 09:03 Blood Pressure 176/113 H 03/22/22 09:03 Pulse Oximetry 99 03/22/22 09:03 Oxygen Delivery Method 03/22/22 09:03 Course Orders Ordered: Discontinued Medications Hydrocodone Bitart/Acetaminophen (Hydrocodone/Acet 5/325 Tablet) 2 tab PO NOW ONE Stop: 03/22/22 09:27 Last Admin: 03/22/22 09:30 Dose: 2 tab Documented By: ANA Ketorolac Tromethamine (Ketorolac 30 Mg/Ml Vial) 30 mg IM NOW ONE Stop: 03/22/22 09:38 Last Admin: 03/22/22 09:40 Dose: 30 mg Documented By: ANA Ondansetron HCl (Ondansetron 4 Mg Odt) 4 mg SL NOW ONE Stop: 03/22/22 09:27 Last Admin: 03/22/22 09:31 Dose: 4 mg Documented By: ANA Vital Signs Vital signs: Vital Signs - 8 hr 03/22/22 09:03 Temperature 97.1 F L Pulse Rate 67 Respiratory Rate 11 L Blood Pressure 176/113 H Pulse Oximetry 99 Oxygen Delivery Method Room Air MDM - Extremity Injury (Upper) Imaging Data Extremity x-ray #1: Radiologist's Impression: [address] [address] XRay Report Signed Patient: Clyde Arce MR#: [id number] : 1965 Acct:[id number] Age/Sex: 56 / M Date of Service: 03/22/22 Loc: ED Accession Number: [id number] ?? Procedure: XR shoulder LT min 2V Ordering Provider: Agustin Henderson MD PROCEDURE:? XR SHOULDER LT MIN 2V ? INDICATIONS:? left shoulder pain / no overt trauma ? TECHNIQUE:? 3 views of the shoulder were acquired.? ? COMPARISON:? None. ? FINDINGS:? ? Bones:? No fractures or dislocations.? No suspicious bony lesions.? Visualized ribs appear intact.? Periarticular osteophyte formation at the acromioclavicular and glenohumeral joints. ? Soft tissues:? Calcification projects over the rotator cuff. ? IMPRESSION:? 1. Osteoarthritis. 2. Calcific tendinitis of the rotator cuff. ? ? Dictated by: Doug Pelayo M.D. on 03/22/2022 at 9:17 ? ? Approved by: Doug Pelayo M.D. on 03/22/2022 at 9:17 ? [facility] Narrative Medical decision making narrative: Patient brought here by spouse. Complains of left shoulder pain. Patient is right-handed. No prior history of injury or surgery to the left shoulder. Patient states 2 nights ago he was pulling up his bed sheets and felt pain in the left shoulder, there is a course of the last couple of days has worsened. Yesterday at work his pain got very severe. Patient lifts heavy machinery, he works for a [employer] company. Very painful with any movement of the left shoulder. No numbness tingling or weakness. No deformity. His shirt was removed After history exam, x-ray shoulder ordered. Differential diagnosis includes but not limited to rotator cuff strain/sprain/tear/dislocation/arthritis/sprain/strain MDM CC: Left shoulder pain Complicating co-morbidities: None Data collected from: Patient and spouse Medical records reviewed: No previous visit for shoulder pain Exam documented above, pertinent findings include: Left shoulder pain with internal external rotation and forward flexion, unable to bring hand behind the back Imaging studies independently reviewed: Left shoulder x-ray positive for osteoarthritis and calcific tendinitis of the rotator cuff Treatments: [place]/sling/Toradol Re-evaluations: Reviewed x-rays with patient and spouse. Will need referral for Orthopedics and MRI. Discussion: Appropriate for discharge home. Will need follow up with Orthopedics and MRI. Pain medication started here and prescription for [place] as well. Work note provided per patient as well. Return precautions reviewed with patient and spouse. Spouse it is driving. Not toxic at discharge. They desire discharge home Diagnosis: Left shoulder strain Discharge Plan Departure Patient Disposition: Home Clinical Impression: Rotator cuff strain Instructions: DI for Shoulder Sprain, DI for Shoulder Pain Activity Restrictions/Additional Instructions: No driving or operating machinery today or when taking prescribed pain medication, may supplement with [id number] ibuprofen for pain. Use sling for comfort. Work note provided to be off today and tomorrow. Please call provided orthopedic office today for appointment and to schedule MRI of your shoulder. Return if worse or for any questions or concerns Prescriptions: New hydrocodone-acetaminophen 5-325 mg tablet 1 tab PO Q6H PRN (Reason: pain) Qty: 15 0RF ondansetron 4 mg tablet,disintegrating 4 mg PO Q8H PRN (Reason: nausea and vomiting) Qty: 10 0RF No Action pantoprazole 40 MG tablet,delayed release (DR/EC) 40 mg PO BID Qty: 30 0RF metoprolol tartrate 25 mg tablet 12.5 mg PO BID Qty: 90 3RF lisinopril 20 mg tablet 20 mg PO QDAY Qty: 90 4RF colchicine 0.6 mg capsule See Rx Instructions .ROUTE .COMPLEX Qty: 15 0RF Dose Instruction: TAKE 2 CAPSULES BY MOUTH AT FIRST SIGN OF GOUT THEN TAKE 1 CAPSULE EVERY 2 HOURS UNTIL SYMPTOMS RESOLVE. Rx Instructions: TAKE 2 CAPSULES BY MOUTH AT FIRST SIGN OF GOUT THEN TAKE 1 CAPSULE EVERY 2 HOURS UNTIL SYMPTOMS RESOLVE. atorvastatin 20 mg tablet See Rx Instructions .ROUTE .COMPLEX Qty: 90 4RF Dose Instruction: TAKE ONE TABLET BY MOUTH EVERY DAY AT BEDTIME Rx Instructions: TAKE ONE TABLET BY MOUTH EVERY DAY AT BEDTIME triamcinolone acetonide 0.1 % ointment 1 applic topical .COMPLEX 14 Days Qty: 30 2RF Rx Instructions: Apply Sparingly to affected areas on legs, 2 to 3 times daily for up to 2 weeks if needed. Referrals: Gaetano Sanchez MD [Physician] - Bree Cooper PA-C [Primary Care Provider] - Stand Alone Forms: Patient Portal/API, Work Release Note
[2022-03-22] MEDS: HYDROCODONE/ACET 5/325 TABLET 2 TAB PO (09:30)
[2022-03-22] MEDS: ONDANSETRON 4 MG ODT SL (09:31)
[2022-03-22] MEDS: KETOROLAC 30 MG/ML VIAL IM (09:40)
[2022-03-22 09:45] VITALS: PULSE 78
[2022-03-22 10:05] VITALS: BP 139/97; PULSE 58; O2SAT 98
== END 2022-03-22 10:06 | disposition home or self-care (01) ==
PROVIDERS: Emergency Provider Emergency Medicine; PCP Physician Assistant
DX: S46.012A Strain of muscle(s) and tendon(s) of the rotator cuff of left shoulder, initial encounter (principal)
CPT/HCPCS: 73030; 96372; 99283; 99284; J1885

== ENCOUNTER 2022-09-29 11:16 | Emergency (ER) | payer OTHER, SELFPAY ==
[2022-09-29 11:30] VITALS: BP 164/89; PULSE 58; RESP 18; TEMP 37.1; O2SAT 99; BMI 31.6
--- NOTE | 2022-09-29 11:38 | DI.RAD.S_ITS ---
PROCEDURE: XR FINGER RT MIN 2V INDICATIONS: injured finger/laceration TECHNIQUE: AP hand, 2 views of the 2nd finger(s) acquired. COMPARISON: None. FINDINGS: Bones: Transverse fracture through the right distal phalanx with volar displacement of the distal fracture fragment. Additional fracture through the 2nd middle phalangeal base, dorsal surface with intra articular involvement at the PIP Soft tissues: No suspicious soft tissue calcifications. IMPRESSION: 2nd distal phalangeal displaced fracture. Nondisplaced intra-articular fracture, base of the 2nd middle phalanx Approved by: Berlin Carbone M.D. on 09/29/2022 at 11:37
[2022-09-29] MEDS: TET,DIPH,PERTUSS(ACELL),VAC/PF 0.5 ML SYRINGE IM (14:56)
[2022-09-29] MEDS: ACETAMINOPHEN 325 MG TABLET 975 MG PO (15:16)
[2022-09-29] MEDS: OXYCODONE IR 5 MG TABLET PO (15:17)
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
== END 2022-09-29 15:50 | disposition home or self-care (01) ==
PROVIDERS: Emergency Provider Physician Assistant; PCP Physician Assistant
DX: S62.630B Displaced fracture of distal phalanx of right index finger, initial encounter for open fracture (principal); W31.89XA Contact with other specified machinery, initial encounter; Z23 Encounter for immunization
CPT/HCPCS: 12002; 73140; 90471; 99283; 99284; 90715

== ENCOUNTER → 2023-03-14 10:01 | Outpatient (CLI) | payer OTHER, SELFPAY ==
[2023-03-14 21:37] LABS: Add Manual Diff / Slide Review NO; Basophils Absolute Auto 0 /uL (0-100); Basophils Percent Auto 0.7 % (0-2); Eosinophils Absolute Auto 300 /uL (0-450); Eosinophils Percent Auto 4.2 % (2-4); Hematocrit 41.9 % (41-53); Hemoglobin 14.7 g/dL (13.5-17.5); Lymphocytes Absolute Auto 1600 /uL (1100-4500); Lymphocytes Percent Auto 26.7 % (25-40); Mean Corpuscular HGB Conc 35.2 % (30-36); Mean Corpuscular Hemoglobin 33.7 PG (26-34); Mean Corpuscular Volume 95.7 fL (80-100); Monocytes Absolute Auto 500 /uL (0-900); Neutrophils Absolute Auto 3600 /uL (1500-7000); Neutrophils Percent Auto 59.4 % (50-75); Platelet Count 217 X10^3/uL (150-400); Red Blood Cell Count 4.38 X10^6/uL (4.5-5.9); Red Cell Distribution Width 12.7 % (11.6-14.8)
[2023-03-14 22:12] LABS: Erythrocyte Sedimentation Rate 9 MM/HR (0-15)
[2023-03-14 23:05] LABS: Alanine Aminotransferase 120 IU/L (<50); Albumin 4.3 g/dL (3.5-5.0); Albumin Globulin Ratio 1.3 (1.0-2.8); Alkaline Phosphatase 95 U/L (38-126); Aspartate Aminotransferase 97 IU/L (17-59); BUN Creatinine Ratio 15.1 (6-22); Bilirubin Total 1.1 mg/dL (0.2-1.3); Blood Urea Nitrogen 13 mg/dL (9-20); Calcium 9.7 mg/dL (8.4-10.2); Carbon Dioxide 27 mmol/L (22-32); Chloride 100 mmol/L (98-107); Cholesterol 128 mg/dL (140-199); Estimated Glomerular Filt Rate > 60 mL/min (>60); Globulin 3.2 g/dL (1.7-4.1); Glucose 113 mg/dL (70-100); HDL Cholesterol 31 mg/dL (40-60); HEMOLYSIS < 15 (0-50); LDL Cholesterol Calculated 79 mg/dL (<100); Potassium 4.4 mmol/L (3.4-5.1); Sodium 137 mmol/L (137-145); Total Protein 7.5 g/dL (6.3-8.2); Triglycerides 90 mg/dL (35-150); Uric Acid 5.2 mg/dL (3.5-8.5)
[2023-03-14 23:36] LABS: Prostate Specific Antigen 0.228 ng/mL (0.10-4.00)
[2023-03-15 01:54] LABS: Hemoglobin A1C% w Est Avg Glu 5.6 % (4.0-6.0)
== END ==
PROVIDERS: PCP Physician Assistant; Visit Provider Physician Assistant
DX: E78.2 Mixed hyperlipidemia (principal); I10 Essential (primary) hypertension; R73.9 Hyperglycemia, unspecified; K25.7 Chronic gastric ulcer without hemorrhage or perforation; M19.90 Unspecified osteoarthritis, unspecified site; R74.01 Elevation of levels of liver transaminase levels; R74.02 Elevation of levels of lactic acid dehydrogenase [LDH]
CPT/HCPCS: 80053; 80061; 83036; 84153; 84550; 85025; 85651

== ENCOUNTER → 2023-04-03 10:40 | Outpatient (CLI) | payer OTHER, SELFPAY ==
--- NOTE | 2023-04-03 11:47 | DI.MRI.S_ITS ---
PROCEDURE: MR LOWER LEG RT WO CON INDICATIONS: Evaluate achilles tendon TECHNIQUE: Noncontrast coronal and sagittal T1 spin echo and STIR; axial T1 spin echo and T2 fast spin echo with fat saturation through the right lower leg. COMPARISON: None. FINDINGS: Image quality: Excellent. Bones: The visualized bone marrow demonstrates normal signal on all sequences. The overlying cortex appears intact. No fractures lines or intra-osseous lesions. Soft tissues: Thickening of the Achilles tendon is seen at the midportion with small amount of intrasubstance fluid signal that is suspicious for partial intrasubstance tearing. The majority of the tendon fibers are intact. The visualized musculature is normal in signal intensity and bulk apart from a few foci of fatty infiltration or intra muscular lipoma is within the medial soleus muscle. Nonspecific focus of metal artifact is seen along the skin surface at the anterolateral aspect of the knee. Small ganglion cyst adjacent to the proximal tibiofibular joint. IMPRESSION: Achilles tendinosis with suspected partial intrasubstance tearing. No full-thickness tendon tear. No acute osseous abnormality. Approved by: Rah Butts M.D. on 04/03/2023 at 20:47
== END ==
LOC: MRI 10:41
PROVIDERS: PCP Physician Assistant; Referring Provider Physician Assistant; Visit Provider Physician Assistant
DX: M76.61 Achilles tendinitis, right leg (principal)
CPT/HCPCS: 73718

== ENCOUNTER → 2023-04-06 11:11 | Outpatient (CLI) | payer OTHER, SELFPAY ==
--- NOTE | 2023-04-06 11:12 | DI.MRI.S_ITS ---
PROCEDURE: MR ANKLE RT WO CON INDICATIONS: Evaluate right achilles tendonitis TECHNIQUE: Noncontrast sagittal T1 spin echo and T2 fast spin echo with fat saturation, axial proton density fast spin echo and T2 fast spin echo with fat saturation, coronal T1 spin echo and T2 fast spin echo with fat saturation through the ankle/hindfoot. COMPARISON: None. FINDINGS: Image quality: Excellent. Bones and joints: Mild osseous edema is seen at the proximal plantar aspect of the cuboid. No hindfoot coalitions. No osteochondral injuries of the talar dome. Nonedematous posterior and plantar calcaneal enthesophytes are present. Nonedematous osseous irregularity at the distal fibula is likely the sequela of a remote prior partial avulsion injury. Medial structures: The deltoid ligament and the spring ligament complex are intact. The posterior tibialis, flexor digitorum longus, and flexor hallucis longus tendons are intact. The posterior tibial neurovascular bundle appears normal within the tarsal tunnel, without extrinsic mass effect. Lateral structures: Remote prior low-grade sprain of the anterior tibiofibular ligament. The posterior tibiofibular ligament is intact. Chronic osseous irregularity at the distal fibula is likely is related to a remote prior partial avulsion injury. Chronic low-grade sprains of the anterior talofibular ligament and the calcaneofibular ligament. The posterior talofibular ligament is intact. Intermediate to hyperintense signal is seen within the peroneus longus tendon at the level of the anterior calcaneus that may indicate chronic partial tearing superimposed on mild peroneus brevis and longus tendinosis. The sinus tarsi demonstrates normal fatty signal. Anterior structures: The tibialis anterior, extensor hallucis longus, and extensor digitorum longus tendons appear intact. Posterior and plantar structures: There is moderate Achilles tendinosis with superimposed low-grade partial intrasubstance tearing at the midportion involving approximately 20% of the cross-sectional area of the tendon fibers. There is thickening of the plantar fascia approximately 3 cm from the distal insertion with intermediate intrasubstance signal measuring approximately 3.4 x 1.2 x 0.5 cm. No abductor digiti minimi muscle atrophy to suggest Olson neuropathy. IMPRESSION: 1. Low-grade partial intrasubstance tearing at the midportion of the Achilles tendon involving approximately 20% of the cross-sectional area of the tendon superimposed on moderate tendinosis. 2. Thickening and intermediate signal within the plantar fascia approximately 3 cm from the distal insertion measuring 3.4 x 1.2 x 0.5 cm, which is suspicious for a plantar fascial fibroma versus chronic fasciitis. 3. Nonspecific osseous edema at the proximal plantar aspect of the cuboid which may be reactive or secondary to an osseous contusion versus less likely calcaneocuboid degenerative changes. 4. Suspected chronic partial intrasubstance tearing of the peroneus longus tendon at the level of the distal calcaneus superimposed on mild peroneus brevis and longus tendinosis. 5. Remote prior low-grade sprains of the anterior talofibular ligament and calcaneofibular ligament and suspected remote prior healed osseous avulsion injury involing their fibular attachments. 1. Approved by: Rah Butts M.D. on 04/08/2023 at 13:10
== END ==
PROVIDERS: PCP Physician Assistant; Referring Provider Physician Assistant; Visit Provider Physician Assistant
DX: S86.011A Strain of right Achilles tendon, initial encounter (principal); S93.411A Sprain of calcaneofibular ligament of right ankle, initial encounter; S93.491A Sprain of other ligament of right ankle, initial encounter; M76.61 Achilles tendinitis, right leg
CPT/HCPCS: 73721

== ENCOUNTER → 2023-04-29 14:33 | Outpatient (CLI) | payer OTHER, SELFPAY ==
[2023-04-29 19:34] LABS: Add Manual Diff / Slide Review NO; Basophils Absolute Auto 0 /uL (0-100); Basophils Percent Auto 0.6 % (0-2); Eosinophils Absolute Auto 300 /uL (0-450); Eosinophils Percent Auto 3.7 % (2-4); Hematocrit 41.2 % (41-53); Hemoglobin 14.3 g/dL (13.5-17.5); Lymphocytes Absolute Auto 1600 /uL (1100-4500); Lymphocytes Percent Auto 22.7 % (25-40); Mean Corpuscular HGB Conc 34.8 % (30-36); Mean Corpuscular Volume 97.7 fL (80-100); Monocytes Absolute Auto 500 /uL (0-900); Monocytes Percent Auto 6.8 % (3-14); Neutrophils Absolute Auto 4700 /uL (1500-7000); Neutrophils Percent Auto 66.2 % (50-75); Platelet Count 211 X10^3/uL (150-400); Red Blood Cell Count 4.21 X10^6/uL (4.5-5.9); Red Cell Distribution Width 13.2 % (11.6-14.8); White Blood Cell Count 7.1 X10^3/uL (4.5-11.0)
[2023-04-29 19:46] LABS: Alanine Aminotransferase 93 IU/L (<50); Albumin 4.4 g/dL (3.5-5.0); Albumin Globulin Ratio 1.3 (1.0-2.8); Alkaline Phosphatase 94 U/L (38-126); Aspartate Aminotransferase 74 IU/L (17-59); Bilirubin Total 1.1 mg/dL (0.2-1.3); Bilirubin Unconjugated 0.7 mg/dL (0.0-1.1); C-Reactive Protein Quant < 0.5 mg/dL (<1.0); Globulin 3.3 g/dL (1.7-4.1); HEMOLYSIS < 15 (0-50); Total Protein 7.7 g/dL (6.3-8.2); Uric Acid 7.1 mg/dL (3.5-8.5)
[2023-04-29 20:36] LABS: Hep C Virus Ab w/Reflex Quant NEGATIVE s/c (NEGATIVE)
[2023-05-02 21:46] LABS: Anti Mitochondrial ABY IGG <20.0 Units (0.0-20.0); Smooth Muscle Antibody 15 Units (0-19)
[2023-05-03 16:35] LABS: ANA Screen, IFA Negative (.)
== END ==
PROVIDERS: PCP Physician Assistant; Visit Provider Physician Assistant
DX: M19.90 Unspecified osteoarthritis, unspecified site (principal); R74.8 Abnormal levels of other serum enzymes; R79.89 Other specified abnormal findings of blood chemistry
CPT/HCPCS: 80076; 83516; 84443; 84550; 85025; 86015; 86038; 86140; 86803

== ENCOUNTER → 2024-07-21 09:44 | Outpatient (CLI) | payer BC, SELFPAY ==
[2024-07-21 19:01] LABS: Hemoglobin A1C% w Est Avg Glu 5.2 % (4.0-6.0)
[2024-07-21 19:06] LABS: Alanine Aminotransferase 71 IU/L (<50); Albumin 4.4 g/dL (3.5-5.0); Albumin Globulin Ratio 1.6 (1.0-2.8); Alkaline Phosphatase 81 U/L (38-126); Aspartate Aminotransferase 63 IU/L (17-59); BUN Creatinine Ratio 22.7 (6-22); Bilirubin Total 1.5 mg/dL (0.2-1.3); Blood Urea Nitrogen 20 mg/dL (9-20); Calcium 9.2 mg/dL (8.4-10.2); Carbon Dioxide 27 mmol/L (22-32); Chloride 99 mmol/L (98-107); Cholesterol 165 mg/dL (140-199); Estimated Glomerular Filt Rate > 60 mL/min (>60); Globulin 2.7 g/dL (1.7-4.1); Glucose 106 mg/dL (70-99); HDL Cholesterol 37 mg/dL (40-60); HEMOLYSIS < 15 (0-50); LDL Cholesterol Calculated 114 mg/dL (<100); Potassium 4.1 mmol/L (3.4-5.1); Sodium 134 mmol/L (137-145); Total Protein 7.1 g/dL (6.3-8.2); Triglycerides 69 mg/dL (35-150)
[2024-07-21 19:33] LABS: Prostate Specific Antigen Scrn 0.275 ng/mL (0.1-4.0)
== END ==
PROVIDERS: PCP Physician Assistant; Visit Provider Physician Assistant
DX: Z12.5 Encounter for screening for malignant neoplasm of prostate (principal); Z12.11 Encounter for screening for malignant neoplasm of colon; E78.2 Mixed hyperlipidemia; I10 Essential (primary) hypertension; R73.9 Hyperglycemia, unspecified
CPT/HCPCS: 80053; 80061; 83036; G0103